=== PATIENT | female | born 1965 | race Caucasian/White ===

== ENCOUNTER → 2025-02-04 16:06 | Outpatient (REF) | payer OTHER, SELFPAY ==
--- OUTSIDE RECORDS SUMMARY | 2025-02-04 18:08 | XMS_ITS | Encounter Summary ---
Author Organization [facility] Address [address] [place] [address] Care Team Providers Care Local Telephone Operator Name Role Phone Unavailable Primary Care Provider Unavailabl e Encounter Details Date Type Department Care Team (Latest Contact Info) Description 02/26/2002 Outpatient Historical HIS [facility] Long Rodriguez MD [address] [facility] [address] [place] [address] LUMP OR MASS IN BREAST (Primary Dx) Social History Tobacco Use Types Packs/Day Years Used Date Smoking Tobacco: Never Assessed Comments Unknown Sex and Gender Information Value Date Recorded Sex Assigned at Not on file Legal Sex Female 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
--- OUTSIDE RECORDS SUMMARY | 2025-02-04 18:08 | XMS_ITS | Encounter Summary ---
Author Organization [facility] Address [address] [place] [address] Care Team Providers Care Stringed Instrument Assembler Name Role Phone Unavailable Primary Care Provider Unavailabl e Encounter Details Date Type Department Care Team (Late st Contact Info) Description 10/31/2024 Results [facility] MEASUREMENT AND SENSING TECHNICIAN [facility] [place] [address] [facility] [address] [place] [address] Long Casas MD [address] [facility] [address] [place] [address] XR DEXA BONE DENSITY AXIAL 1 OR MORE SITES Social History Tobacco Use Types Packs/Day Years Used Date Smoking Tobacco: Never Alcohol Use Standard Drinks/Week Comments Yes 0 (1 standard drink = 0.6 oz pur e alcohol) Occasionally Comments No Sex and Gender Information Value Date Recorded Sex Assigned at Not on file 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
--- OUTSIDE RECORDS SUMMARY | 2025-02-04 18:08 | XMS_ITS | Encounter Summary ---
Author Organization [facility] Address 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 [place], [place] [address] Admit Date: 01/12/2009 JUSTINA TAVERAS Sex: F Admit Prov: LONG NGUYEN Date: 1965 Primary Care Prov: LUIS FRANCIS CMRN: [id number] Room: DARNELL SSN: [id number] IMAGING SERVICES Ordering Prov: LONG NGUYEN Accession Number: [id number] Interpretation BILATERAL SCREENING DIGITAL MAMMOGRAMS WITH COMPUTER ASSISTED DIAGNOSIS 01/12/2009 Clinical History: Routine screening study. Comparison is made to 11/08/2007. The breast parenchyma has scattered fibroglandular densities. No new dominant masses, suspicious calcifications or areas of parenchymal asymmetry or distortion are identified. The images were reviewed using the CAD system. Impression: Stable screening mammogram Recommend routine followup Overall assessment: BIRADS category 1 - Negative. Assessment BIRADS: 1-Negative Recommendation: Normal interval follow-up Dictated by: ROSALBA MATOS Electronically signed by: ROSALBA MATOS 01/13/2009 12:42 Transcribed: 01/12/2009 17:26 SDJ Procedure Note Rosalba Matos - 01/13/2009 [facility] [address] [place], [place] [address] Admit Date: 01/12/2009 JUSTINA TAVERAS Sex: F Admit Prov: LONG NGUYEN Date:1965 Primary Care Prov: LUIS FRANCIS CMRN: [id number] Room: DARNELL SSN: [id number] IMAGING SERVICES Ordering Prov: LONG NGUEYN Interpretation BILATERAL SCREENING DIGITAL MAMMOGRAMS WITH COMPUTER ASSISTEDDIAGNOSIS 01/12/2009 Clinical History: Routine screening study. Comparison is made to 11/08/2007. The breast parenchyma hasscattered fibroglandular densities. No new dominant masses, suspiciouscalcifications or areas of parenchymal asymmetry or distortion are identified. Theimages were reviewed using the CAD system. Impression: Stable screening mammogram Recommend routine followup Overall assessment: BIRADS category 1 - Negative. Assessment BIRADS: 1-Negative Recommendation: Normal interval follow-up Dictated by: ROSALBA MATOS Electronically signed by: ROSALBA MATOS 01/13/2009 12:42 Transcribed: 01/12/2009 17:26 SDJ us Long Nguyen MD MAMMO ORDERABLES Final Result documented in this encounter Visit Diagnoses Diagnosis Other screening mammogram documented in this encounter
--- OUTSIDE RECORDS SUMMARY | 2025-02-04 18:08 | XMS_ITS | Referral Summary ---
Author Organization [facility] [address] [place] [address] Care Team Providers Care Quality Assurance Monitor Chassis Name Role Phone Hema Aden MD Primary Care Provider [phone] Encounters Date Type Department Care Team Description 11/29/2024 Telephone [facility] Primary Care at [address] [place] [phone] Hema Aden MD 11/26/2024 Orders Only [facility] Primary Care at [address] [place] [phone] Hema Aden MD 11/21/2024 Telephone [facility] Primary Care at [address] [place] [phone] Hema Aden MD Authorization/Certif ication 11/12/2024 Telephone [facility] Medical [facility] Primary Care at [address] [place] [phone] Hema Aden MD Prior Auth-Mounjaro 11/06/2024 Patient Self-Triage [facility] Health[facility]/ Physicians [address] [place] [id number] Mychart, Generic Provider 11/06/2024 Patient Self-Triage [facility] [address] [place] [phone] Mychart, Generic Provider from Last 3 Months Allergies Active Allergy Reactions Criticality Noted Date Comments Erythromycin Rash,Swelling Medium 04/28/2017 Latex Rash Medium 04/28/2017 Povidone-Iodine Rash Medium 06/21/2017 Rash, itching Sulfa (Sulfonamide Antibiotics) Urticaria Medium 08/05/2019 Venom-Honey Bee Shortness of breath High 06/21/2017 Trouble breathing Venom-Wasp Swelling High 06/21/2017 Per patient, blisters, trouble breathing Per patient, blisters, trouble breathing Wasp Venom Swelling High 06/21/2017 Per patient, blisters, trouble breathing Medications tirzepatide, weight loss, (ZEPBOUND) 2.5 mg/0.5 mL solution vial Inject 0.5 mL (2.5 mg total) under the skin every 7 days This medication record is used for ordering a prescription for Elin Direct Gomez 2 mL 5 Active Active Problems Problem Noted Date Diagnosed Date Prediabetes 10/07/2024 Mixed hyperlipidemia 10/07/2024 Assessment & Plan (10/07/2024 2:04 PM AUTO FORMER MACHINE OPERATOR): Lab Results Component Value Date CHOL 205 (H) 08/17/2023 CHOL 200 (H) 11/14/2022 Lab Results Component Value Date HDL 72 08/17/2023 HDL 60 11/14/2022 Lab Results Component Value Date LDLCALC 112 (H) 08/17/2023 LDLCALC 130 (H) 11/14/2022 Lab Results Component Value Date TRIG 122 08/17/2023 TRIG 56 11/14/2022 No results found for: POCCHDLR No results found for: POCNONHDL No results found for: POCCHLPL The 10-year ASCVD risk score (Aaron CHAVEZ, et al., 2019) is: 2.2% Values used to calculate the score: Age: 59 years Sex: Female Is Non- : No Diabetic: No Tobacco smoker: No Systolic Blood Pressure: 128 mmHg Is BP treated: No HDL Cholesterol: 72 mg/dL Total Cholesterol: 205 mg/dL At goal goal at this time Elevated LDL but improved Repeat labs now Annual physical exam 08/17/2023 Assessment & Plan (10/07/2024 2:03 PM AUTO FORMER MACHINE OPERATOR): Discussed lifestyle modifications, diet and exercise. Routine blood work ordered/reviewed today. Yearly vision and dental examinations. Assessment & Plan (08/17/2023 9:13 AM CDT): Discussed lifestyle modifications, diet and exercise. Routine blood work ordered/reviewed today. Yearly vision and dental examinations. Rheumatoid arthritis of [facility] with negative rheumatoid factor 08/17/2023 Assessment & Plan (08/17/2023 9:14 AM CDT): Following with rheumatology Stable at this time Class 2 obesity due to exces s calories without serious comorbidity with body mass index (BMI) of 37.0 to 37.9 in adult 11/14/2022 Assessment & Plan (10/07/2024 2:06 PM AUTO FORMER MACHINE OPERATOR): Wt Readings from Last 3 Encounters: 10/07/24 102.2 kg (225 lb 3.2 oz) 08/17/23 102.1 kg (225 lb) 11/14/22 103.4 kg (228 lb) BMI Readings from Last 3 Encounters: 10/07/24 37.48 kg/m 08/17/23 37.44 kg/m 11/14/22 37.94 kg/m Not at goal of bmi <30 Continue diet and exercise BMI Follow-up includes: nutrition counseling and exercise counseling. Side effects to medicatiuon D/c metformin now no signfiicant improvement with megtofrmin and had significant side effects to it and had to d/c Now states that ozempic has not helped at all Wants to try switching to zepboudn Assessment & Plan (08/28/2023 7:53 AM AUTO FORMER MACHINE OPERATOR): Wt Readings from Last 3 Encounters: 08/17/23 102.1 kg (225 lb) 11/14/22 103.4 kg (228 lb) 09/24/21 109.4 kg (241 lb 1.6 oz) BMI Readings from Last 3 Encounters: 08/17/23 37.44 kg/m 11/14/22 37.94 kg/m 09/24/21 40.12 kg/m Not at goal of bmi <30 Continue diet and exercise BMI Follow-up includes: nutrition counseling and exercise counseling. Side effects to medicatiuon D/c metformin now no signfiicant improvement with megtofrmin and had significant side effects to it and had to d/c Assessment & Plan (11/14/2022 9:08 AM AUTO FORMER MACHINE OPERATOR): Wt Readings from Last 3 Encounters: 11/14/22 103.4 kg (228 lb) 09/24/21 109.4 kg (241 lb 1.6 oz) 04/13/20 104.3 kg (230 lb) BMI Readings from Last 3 Encounters: 11/14/22 37.94 kg/m 09/24/21 40.12 kg/m 04/13/20 38.27 kg/m Not at goal of bmi <30 Continue diet and exercise BMI Follow-up includes: nutrition counseling and exercise counseling. Wants to try medication, will do a trial with ozempic Polyarthralgia 11/14/2022 Assessment & Plan (11/14/2022 9:09 AM AUTO FORMER MACHINE OPERATOR): Stable - following with rheumatology Resolved Problems Problem Noted Date Diagnosed Date Resolved Date Diabetes mellitus 10/07/2024 10/07/2024 Abdominal pain 04/09/2020 11/14/2022 Assessment & Plan (04/09/2020 2:29 PM CDT): Severe. Lower abdominal pain with associated tenderness. Suggestive of acute colitis versus diverticulitis. Plan: Check CBC, CMP and CT abdomen and pelvis. Colonoscopy is scheduled and to be performed if there is no acute inflammation and CT. The patient was informed about the risks, benefits and alternatives to colonoscopy. The risks including but not limited to perforation, bleeding, infection and anesthetic complications with discussed with the patient and the patient verbalized full understanding. Diarrhea 04/09/2020 11/14/2022 Assessment & Plan (04/09/2020 2:25 PM CDT): New onset. Moderately severe. Associated with chills, tenderness, abdominal pain. Differential diagnosis include acute colitis,diverticulitis, IBD. Plan Obtain CBC, CMP, CRP. Obtain CT abdomen and pelvis w/o contrast. Stool culture. Colonoscopy recommended. Bloating 04/09/2020 11/14/2022 Assessment & Plan (04/09/2020 2:43 PM CDT): May be a component of IBS. The patient also has diminished bowel sounds and the bloating symptoms may be due to ileus related to acute abdominal inflammation. She was counseled to avoid dairy products and shiga substitutes. CT scan of the abdomen and pelvis is requested. Immunizations Immunization Administration Dates Next Due Influenza, Unspecified 10/07/2024(Deferr ed: Patient Refused),11/14/2022(Deferred: Patient Refused) Tdap 06/16/2011 Social History Tobacco Use Types Packs/Day Years Used Date Smoking Tobacco: Never Smokeless Tobacco: Never Alcohol Use Standard Drinks/Week Comments Yes 0 (1 standard drink = 0.6 oz pur e alcohol) Occasionally PHQ-2 Answer Date Recorded PHQ-2 Total Score (If total score is 3 or more points, staff should administer the PHQ-9) 0 10/07/2024 Comments Unknown Sex and Gender Information Value Date Recorded Sex Assigned at Not on file Legal Sex Female 8:03 PM AUTO FORMER MACHINE OPERATOR Gender Identity Female 10/18/2022 3:18 PM AUTO FORMER MACHINE OPERATOR Sexual Orientation Straight 10/18/2022 3: 18 PM AUTO FORMER MACHINE OPERATOR Last Filed Vital Signs Vital Sign Reading Time Taken Comments Blood Pressure 134/82 10/07/2024 2:00 PM AUTO FORMER MACHINE OPERATOR Pulse 83 10/07/2024 2:00 PM AUTO FORMER MACHINE OPERATOR Temperature 37 C (98.6 F) 09/24/2021 2:43 PM AUTO FORMER MACHINE OPERATOR Respiratory Rate 16 10/07/2024 2:00 PM AUTO FORMER MACHINE OPERATOR Oxygen Saturation 100% 10/07/2024 2:00 PM AUTO FORMER MACHINE OPERATOR Inhaled Oxygen Concentration - - Weight 102.2 kg (225 lb 3.2 oz) 10/07/2024 2:00 PM AUTO FORMER MACHINE OPERATOR Height 165.1 cm (5' 5 ) 10/07/2024 2:00 PM AUTO FORMER MACHINE OPERATOR Body Mass Index 37.48 10/07/2024 2:00 PM AUTO FORMER MACHINE OPERATOR Plan of Treatment Not on file Procedures Procedure Name Priority Date/Time Associated Diagnosis Comments HEPATITIS C ANTIBODY Routine 10/08/2024 11:36 AM AUTO FORMER MACHINE OPERATOR Need for hepatitis B screening test COLONOSCOPY 04/13/2020 10:31 AM CDT from Last 3 Months or Most Recently Relevant to Health Maintenance Results * Hepatitis C antibody Blood (10/08/2024 11:36 AM AUTO FORMER MACHINE OPERATOR) Hep C Ab Non Reactive Non Reactive [facility] - 01 Comment: HCV antibody alone does not differentiate between previously resolved infection and active infection. Equivocal and Reactive HCV antibody results should be followed up with an HCV RNA test to support the diagnosis of active HCV infection. Blood 10/08/2024 11:3 6 AM AUTO FORMER MACHINE OPERATOR 10/08/2024 Narrative [facility] - 10/09/2024 4:06 AM AUTO FORMER MACHINE OPERATOR Performed at: 01 - [address] [id number] Head Of Biology: Franco Denny PhD, Phone: [phone] us Hema Aden MD LAB MICROBIOLOGY - GENERAL ORDER [place] Final Result [facility] - 01 * COLONOSCOPY (04/13/2020 10:31 AM CDT) Anatomical Region Laterality Modality Other Narrative Procedure Note Ester Talbot MD - 04/13/2020 10:31 AM CDT [facility] Patient Name: Justina Martinez Procedure Date: 04/13/2020 10:31 AM Date of : 1965 Admit Type: Outpatient Age: 54 Gender: Female Note Status: Finalized Attending MD: Ester Talbot M.D. Procedure Date: 04/13/2020 Procedure: Colonoscopy Indications: Lower abdominal pain, Follow-up of diverticulitis Providers: Ester Talbot M.D., Jamir James CRNA (Anesthesia Staff), Meryl Shepard RN Referring MD: Pcp Clinic Medicines: Monitored Anesthesia Care Complications: No immediate complications. Estimated Blood Loss: Estimated blood loss was minimal. Procedure: Pre-Anesthesia Assessment: - Prior to the procedure, a History and Physical was performed, and patient medications and allergieswere reviewed. The patient is competent. The risks and benefits of the procedure and the sedation optionsand risks were discussed with the patient. All questions were answered and informed consent was obtained. Patient identification and proposed procedure were verified by the physician, the nurse and the video coordinator in the procedure room. Mental Status Examination: alert and oriented. Airway Examination: normal oropharyngeal airway and neck mobility. Respiratory Examination: clear to auscultation. CV Examination: normal. Prophylactic Antibiotics: The patient does not require prophylactic antibiotics. Prior Anticoagulants: The patient has taken noprevious anticoagulant or antiplatelet agents. ASA Grade Assessment: II - A patient with mild systemicdisease. After reviewing the risks and benefits, the patientwas deemed in satisfactory condition to undergo the procedure. The anesthesia plan was to use monitored anesthesia care (MAC). Immediately prior to administration of medications, the patient was re-assessed for adequacy to receive sedatives. The heart rate, respiratory rate, oxygen saturations,blood pressure, adequacy of pulmonary ventilation, and response to care were monitored throughout the procedure. The physical status of the patient was re-assessed after the procedure. - The risks and benefits of the procedure and the sedation options and risks were discussed with the patient. All questions were answered and informed consent was obtained. After I obtained informed consent, the scope waspassed under direct vision. Throughout the procedure, the patient's blood pressure, pulse, and oxygensaturations were monitored continuously. The scope was passedunder direct vision. The Colonoscope was introducedthrough the anus and advanced to the the cecum, identifiedby appendiceal orifice and ileocecal valve. The colonoscopy was performed without difficulty. The patient tolerated the procedure well. The quality of the bowel preparation was adequate. The bowel preparation used was SUPREP. Bowel prep was administered using a split dose. Findings: Multiple small and large-mouthed diverticula were found in thesigmoid colon. Erythema was seen in association with the diverticularopening. Kat-diverticular erythema was seen. There was no evidence of diverticular bleeding. Biopsies were taken with a cold forceps for histology. Estimated blood loss was minimal. The exam was otherwise without abnormality on direct and retroflexion views. Impression: - Moderate diverticulosis in the sigmoid colon. Erythema was seen in association with thediverticular opening. Kat-diverticular erythema was seen. Therewas no evidence of diverticular bleeding. Biopsied. - The examination was otherwise normal on direct and retroflexion views. Recommendation: - Await pathology results. - Low fiber diet for 2 weeks. Then change to highfiber diet. - Continue present medications. (Ciprofloxacin and flagyl) for 2 weeks. - Repeat colonoscopy in 10 years for screeningpurposes. Procedure Code(s): --- Professional --- 77231, Colonoscopy, flexible; with biopsy, single or multiple Diagnosis Code(s): --- Professional --- R10.30, Lower abdominal pain, unspecified K57.32, Diverticulitis of large intestine without perforation or abscess without bleeding K57.30, Diverticulosis of large intestine without perforation or abscess without bleeding CPT copyright 2017 [employer]. All rights reserved. The codes documented in this report are preliminary and upon medical record consultant reviewmay be revised to meet current compliance requirements. Electronically signed by Ester Talbot M.D. Ester Talbot M.D. 04/13/2020 11:03:41 AM Number of Addenda: 0 Note Initiated On: 04/13/2020 10:31 AM Ester Talbot MD ENDOSCOPY PROCEDURES Fi nal Result from Last 3 Months or Most Recently Relevant to Health Maintenance Insurance [facility]O Address[place] [address] [facility]/PPO Address: [place] [address] Care Teams Quality Assurance Monitor Chassis Relationship Specialty Start Date End Date Hema Aden MD PCP - General Family Medicine 11/14/22
--- OUTSIDE RECORDS SUMMARY | 2025-02-04 18:08 | XMS_ITS | Clinical Summary ---
Author Organization [facility] Address [address] [place] [address] Phone Care Team Providers Care Label Pinker Name Role Phone Unavailable Primary Care Provider Unavailabl e Allergies Active Allergy Reactions Criticality Noted Date Comments Erythromycin Rash,Swelling Medium 04/28/2017 Latex Rash Medium 04/28/2017 Povidone-Iodine Rash Medium 06/21/2017 Rash, itching Rash, itching Soap Other (See Comments) 08/06/2019 Sulfa (Sulfonamide Antibiotics) Shortness of Breath/Wheezing,Hive s High 06/21/2017 Trouble breathing Venom-Wasp Swelling High 06/21/2017 Per patient, blisters, trouble breathing Per patient, blisters, trouble breathing Medications ibuprofen (MOTRIN) 800 mg tablet Take 800 mg by mouth. 9 Active naproxen sodium (ALEVE) 220 mg Capsule Take 2 Capsules by mouth daily. Active CALCIUM CARBONATE-VITAM IN D3 ORAL Take by mouth. Acti ve CYANOCOBALAMIN, VITAMIN B-12, ORAL Take by mouth. Activ e Calcium-Choleca lciferol, D3, (OSCAL) 250 mg-3.125 mcg (125 unit) per tablet Take by mouth daily. Active semaglutide 1 mg/dose (4 mg/3 mL) Pen Injector Inject 1 mg by subcutaneous injection every 7 days. 3 Active acetaminophen (TYLENOL) 500 mg tablet Take 500 mg by mouth. Active Active Problems No known active problems Encounters Date Type Department Care Team Description 01/01/2025 External Device Data STL ABSTRACTION Provider, Abstract 12/25/2024 External Device Data STL ABSTRACTION Provider, Abstract 12/24/2024 External Device Data STL ABSTRACTION Provider, Abstract 12/21/2024 External Device Data STL ABSTRACTION Provider, Abstract 12/21/2024 External Device Data STL ABSTRACTION Provider, Abstract 12/18/2024 External Device Data STL ABSTRACTION Provider, Abstract 12/04/2024 External Device Data STL ABSTRACTION Provider, Abstract 11/07/2024 External Device Data STL ABSTRACTION Provider, Abstract from Last 3 Months Family History Medical History Relation Name Comments Breast Cancer Paternal Cousin Ovarian Cancer Neg Hx Relation Name Status Comments Paternal Cousin Social History Tobacco Use Types Packs/Day Years Used Date Smoking Tobacco: Never Alcohol Use Standard Drinks/Week Comments Yes 0 (1 standard drink = 0.6 oz pur e alcohol) Occasionally Comments No Sex and Gender Information Value Date Recorded Sex Assigned at Not on file Legal Sex Female 3:23 AM VICE PRESIDENT NETWORK Gender Identity Not on file Sexual Orientation Not on file Occupation Industry Job Start Date Job End Date Not on file Not on file Not on file Not on file Not on file Not on file Not on file Not on file Last Filed Vital Signs Vital Sign Reading Time Taken Comments Blood Pressure 132/84 10/04/2024 1:07 PM VICE PRESIDENT NETWORK Pulse - - Temperature - - Respiratory Rate - - Oxygen Saturation - - Inhaled Oxygen Concentration - - Weight 101.6 kg (224 lb) 10/04/2024 1:07 PM VICE PRESIDENT NETWORK Height 165.1 cm (5' 5 ) 10/04/2024 1:07 PM VICE PRESIDENT NETWORK Body Mass Index 37.28 10/04/2024 1:07 PM VICE PRESIDENT NETWORK Plan of Treatment Health Maintenance Due Date Last Done Comments Pre-Diabetes and Diabetes Screening 1965 HEPATITIS B VACCINES (1 of 3 - 19+ 3-dose series) 1985 FIT-DNA Q 3 years 2011 FIT/FOBT Q 1 year 2011 Flex Sig/CT Colonography Q 5 years 2011 ZOSTER VACCINE (1 of 2) 2016 DTAP/TDAP/TD VACCINES (2 - T d or Tdap) 06/16/2021 06/16/2011 INFLUENZA VACCINE (#1) 2024 BREAST CANCER SCREENING 10/04/2025 10/04/20 24, 10/02/2023, 09/29/2022, Additional history exists PAP SMEAR 10/04/2027 10/04/2024, 09/15, 09/29/2022, Additional history exists CERVICAL CANCER SCREENING 10/04/2029 HPV/Cotest (21-29) 10/04/2029 10/04/2024, 1 12/03/2022, 09/29/2022, Additional history exists HPV/Cotest (30-65) 10/04/2029 10/04/2024, 1 12/03/2022, 09/29/2022, Additional history exists COLORECTAL SCREENING 04/13/2030 04/13/2020, 04/13/20 Colorectal Cancer Screening 04/13/2030 Procedures Procedure Name Priority Date/Time Associated Diagnosis Comments MAMMO 3D MARIANO SCREEN BILAT W OR WO CAD Routine 10/04/2024 1:59 PM VICE PRESIDENT NETWORK Visit for screening mammogram CERV/VAG CYTO AGE BASED SCREEN PAP Routine 10/04/2024 1:54 PM VICE PRESIDENT NETWORK Screening for cervical cancer from Last 3 Months or Most Recently Relevant to Health Maintenance Results * MAMMO 3D MARIANO SCREEN BILAT W OR WO CAD (10/04/2024 1:59 PM VICE PRESIDENT NETWORK) Anatomical Region Laterality Modality Breast Bilateral Mammography 10/04/2024 1:59 PM VICE PRESIDENT NETWORK Impressions 10/04/2024 2:35 PM VICE PRESIDENT NETWORK IMPRESSION: No mammographic evidence of malignancy is identified in either breast. Routine screening mammography is recommended in one year. OVERALL FINAL ASSESSMENT: BI-RADS CATEGORY 1 - Negative DICTATION LOCATION: [facility] 10/04/2024 2:35 PM VICE PRESIDENT NETWORK EXAMINATION: MAMMO 3D MARIANO SCREEN BILAT W OR WO CAD DATE: 10/04/2024 1:59 PM HISTORY: Routine screening mammography. COMPARISON: 10/02/2023, 09/29/2022, 09/16/2021. TECHNIQUE: Bilateral screening mammogram was performed. Low-dose full-field digital breast tomosynthesis examination was performed with 2D and 3D acquisitions. Examination is read in conjunction with computer aided detection. BREAST COMPOSITION: The breasts are almost entirely fatty. FINDINGS: No new suspicious findings are identified in either breast on mammogram. Procedure Note Severino Arevalo MD - 10/04/2024 EXAMINATION: MAMMO 3D MARIANO SCREEN BILAT W OR WO CAD DATE: 10/04/2024 1:59 PM HISTORY: Routine screening mammography. COMPARISON: 10/02/2023, 09/29/2022, 09/16/2021. TECHNIQUE: Bilateral screening mammogram was performed. Low-dose full-field digital breast tomosynthesis examination was performed with 2D and 3D acquisitions. Examination is read in conjunction with computer aided detection. BREAST COMPOSITION: The breasts are almost entirely fatty. FINDINGS: No new suspicious findings are identified in either breast on mammogram. IMPRESSION: No mammographic evidence of malignancy is identified in either breast. Routine screening mammography is recommended in one year. OVERALL FINAL ASSESSMENT: BI-RADS CATEGORY 1 - Negative DICTATION LOCATION: [facility] Long Casas MD MAMMO ORDERABLES Final Result * CERV/VAG CYTO AGE BASED SCREEN PAP (10/04/2024 1:54 PM VICE PRESIDENT NETWORK) COMMENT (PAP): [facility] Comment: This order for age-based cervical cancer and STI screening follows ACOG guidelines(PB 168, 140, DEZ065). See individual assays for performing site location. CLINICAL INFORMATION [facility] Comment:None given LAST MENSTRUAL PERIOD [facility] Comment:NONE GIVEN PREV PAP: [facility] Comment:NONE GIVEN PREV BX: [facility] Comment:NONE GIVEN SOURCE [facility] Comment:Endocervix ADEQUACY: [facility] Comment: Satisfactory for evaluation. Endocervical/transformation zone component present. PAP INTERP [facility] Comment: Cytology Results: Negative for intraepithelial lesion or malignancy. COMMENT (PAP TEST) [facility] Comment: This Pap test has been evaluated with computer assisted technology. BACK MAKER: Sobeida est Leilani- Juliana Comment: MEF, CT(ASCP) CT screening location: [place] [address] [place] [address] REVIEW BACK MAKER: [facility] Comment: MVB, CT(ASCP) CT Screening Location: [place] [address] [place] [address] EXPLANATORY NOTE [facility] [place] Comment: EXPLANATORY NOTE: The Pap is a screening test for cervical cancer. It is not a diagnostic test and is subject to false negative and false positive results. It is most reliable when a satisfactory sample, regularly obtained, is submitted with relevant clinical findings and history, and when the Pap result is evaluated along with historic and current clinical information. HPV E6/E7 Not Detected Not Detected [facility] [place] Comment: Methodology: Oxyhydrogen Welder-Mediated Amplification This assay detects E6/E7 viral messenger RNA (mRNA) from 14 high-risk HPV types (16,18,31,33,35,39,45,51,52,56,58,59,66,68). Cervical sources are required for HPV testing. If a vaginal source from a patient who has had a total hysterectomy with removal of cervix was submitted, please contact the testing laboratory for alternative testing options. For additional information, please refer to http://education.[employer]/faq/XRX581z7 (This link if provided for information/ educational purposes only.) Test Performed at: [email or web address] [address] [place] [address] Deepa Singh MD Genital SWAB OF ENDOCERVIX / Unknown 10/04/2024 1:54 PM VICE PRESIDENT NETWORK 10/05/2024 12:20 AM VICE PRESIDENT NETWORK Long Casas MD PATHOLOGY/CYTOLOGY ORDERABLES nal Result [facility] [phone] [facility] [address] [place] [address] from Last 3 Months or Most Recently Relevant to Health Maintenance Insurance [facility] [id number]
--- OUTSIDE RECORDS SUMMARY | 2025-02-04 18:08 | XMS_ITS | Encounter Summary ---
Author Organization [facility] Address [address] [place] [address] Care Team Providers Care Filament Cutter Name Role Phone Unavailable Primary Care Provider Unavailabl e Encounter Details Date Type Department Care Team (Latest Contact Info) Description 11/08/2007 Outpatient Historical [facility] Long Rodriguez MD [address] [facility] [address] [place] [address] Other Screening Mammogram Social History Tobacco Use Types Packs/Day Years Used Date Smoking Tobacco: Never Assessed Comments Unknown Sex and Gender Information Value Date Recorded Sex Assigned at Not on file Legal Sex Female 3:23 AM BRANCH OPERATION EVALUATION MANAGER Gender Identity Not on file Sexual Orientation Not on file documented as of this encounter Plan of Treatment Not on file documented as of this encounter Visit Diagnoses Diagnosis Other screening mammogram documented in this encounter
--- OUTSIDE RECORDS SUMMARY | 2025-02-04 18:08 | XMS_ITS | Encounter Summary ---
Author Organization [facility] Address [address] [facility] [place] [address] Care Team Providers Care Seam Press Operator Name Role Phone Neptali Gonzalez MD Primary Care Provider [phone] Long Casas MD Unavailable Robert Cameron MD Unavailable Unknown, Provider Primary Care Provider Unavaila ble Encounter Details Date Type Department Care Team (Late st Contact Info) Description 09/17/2012 [facility] Social History Tobacco Use Types Packs/Day Years Used Date Smoking Tobacco: Never Alcohol Use Standard Drinks/Week Comments No 0 (1 standard drink = 0.6 oz pur e alcohol) Comments No Sex and Gender Information Value Date Recorded Sex Assigned at Female 10/25/2021 1:12 PM SOFTWOOD FALLER Legal Sex Female 5:06 AM SOFTWOOD FALLER Gender Identity Female 10/25/2021 1:12 PM SOFTWOOD FALLER Sexual Orientation Straight 10/25/2021 1: 12 PM SOFTWOOD FALLER documented as of this encounter Plan of Treatment Not on file documented as of this encounter Visit Diagnoses Not on filedocumented in this encounter Care Teams Seam Press Operator Relationship Specialty Start Date End Date Neptali Gonzalez MD PCP - General 11/09/08 07/16/19 Unknown, Provider [address] [place] [phone] PCP - General 10/25/21 Long Casas MD [address] [place] [address] Security Patrol Driver Obstetrics and Gynecology 01/15/14 [place] [address] [place] [address] Extracting Machine Operator Rheumatology 07/17/19 documented as of this encounter
--- OUTSIDE RECORDS SUMMARY | 2025-02-04 18:08 | XMS_ITS | Encounter Summary ---
Author Organization [facility] Health Address [address] [facility] [place] [address] Care Team Providers Care Senior Electronics Technician Name Role Phone Neptali Gonzalez MD Primary Care Provider [phone] Long Casas MD Unavailable Robert Cameron MD Unavailable Unknown, Provider Primary Care Provider Unavaila ble Encounter Details Date Type Department Care Team (Late st Contact Info) Description 02/22/2011 [facility] [address] [place] [address] Social History Tobacco Use Types Packs/Day Years Used Date Smoking Tobacco: Never Alcohol Use Standard Drinks/Week Comments No 0 (1 standard drink = 0.6 oz pur e alcohol) Comments No Sex and Gender Information Value Date Recorded Sex Assigned at Female 10/25/2021 1:12 PM PRECISION OPTICAL GOODS WORKER Legal Sex Female 5:06 AM PRECISION OPTICAL GOODS WORKER Gender Identity Female 10/25/2021 1:12 PM PRECISION OPTICAL GOODS WORKER Sexual Orientation Straight 10/25/2021 1: 12 PM PRECISION OPTICAL GOODS WORKER documented as of this encounter Plan of Treatment Not on file documented as of this encounter Visit Diagnoses Not on filedocumented in this encounter Care Teams Senior Electronics Technician Relationship Specialty Start Date End Date Neptali Gonzalez MD PCP - General 11/09/08 07/16/19 Unknown, Provider [address] [place] [address] PCP - General 10/25/21 Long Casas MD [address] [facility] [address] [place] [address] Metal Fitters And Machinists Obstetrics and Gynecology 01/15/14 [place] [address] [place] [phone] Mechanical Engineering Manager Rheumatology 07/17/19 documented as of this encounter
--- OUTSIDE RECORDS SUMMARY | 2025-02-04 18:08 | XMS_ITS | Clinical Summary ---
Author Organization [facility] [address] [place] [address] Care Team Providers Care Mechanic Helper Name Role Phone Hema Aden MD Primary Care Provider [phone] Allergies Active Allergy Reactions Criticality Noted Date [...] is used for ordering a prescription for Mindshapes Direct Gomez 2 mL 5 Active Active Problems Problem Noted Date Diagnosed Date Prediabetes 10/07/2024 Mixed hyperlipidemia 10/07/2024 Assessment & Plan (10/07/2024 2:04 PM OFFICE MACHINE SERVICE SUPERVISOR): Lab Results Component Value Date CHOL 205 [...] 08/17/2023 Assessment & Plan (10/07/2024 2:03 PM OFFICE MACHINE SERVICE SUPERVISOR): Discussed lifestyle modifications, diet and exercise. Routine blood work ordered/reviewed today. Yearly vision and dental examinations. Assessment & Plan (08/17/2023 9:13 AM CDT): Discussed lifestyle modifications, diet and exercise. Routine blood work ordered/reviewed today. Yearly vision and dental examinations. Rheumatoid arthritis of [facility] sites with negative rheumatoid factor 08/17/2023 Assessment & Plan (08/17/2023 9:14 AM CDT): Following with rheumatology Stable at this time Class 2 obesity due to exces s calories without serious comorbidity with body mass index (BMI) of 37.0 to 37.9 in adult 11/14/2022 Assessment & Plan (10/07/2024 2:06 PM OFFICE MACHINE SERVICE SUPERVISOR): Wt Readings from Last 3 Encounters: 10/07/24 [...] zepboudn Assessment & Plan (08/28/2023 7:53 AM OFFICE MACHINE SERVICE SUPERVISOR): Wt Readings from Last 3 Encounters: 08/17/23 [...] d/c Assessment & Plan (11/14/2022 9:08 AM OFFICE MACHINE SERVICE SUPERVISOR): Wt Readings from Last 3 Encounters: 11/14/22 [...] 11/14/2022 Assessment & Plan (11/14/2022 9:09 AM OFFICE MACHINE SERVICE SUPERVISOR): Stable - following with rheumatology Resolved Problems [...] of the abdomen and pelvis is requested. Encounters Date Type Department Care Team Description 11/29/2024 Telephone [facility] Primary Care at [address] [phone] Hema Aden MD 11/26/2024 Orders Only [facility] Primary Care at [address] [phone] Hema Aden MD 11/21/2024 Telephone [facility] Primary Care at [address] [phone] Hema Aden MD Authorization/Certif ication 11/12/2024 Telephone [facility] Primary Care at [address] [phone] Hema Aden MD Prior Auth-Mounjaro 11/06/2024 Patient Self-Triage [facility] [address] [place] [id number] Mychart, Generic Provider 11/06/2024 Patient Self-Triage [facility] [address] [place] [address] Mychart, Generic Provider from Last 3 Months Immunizations Immunization Administration Dates Next Due Influenza, Unspecified 10/07/2024(Deferr ed: Patient Refused),11/14/2022(Deferred: Patient Refused) Tdap 06/16/2011 Surgical History Surgery Date Site/Laterality Comments REDUCTION MAMMAPLASTY 10/16/2003 Bilateral ABDOMINAL SURGERY 10/16/2009 ESOPHAGOGASTRODUODENOSCOPY [facility] COLONOSCOPY 1994 Medical History Medical History Date Comments Rheumatoid aortitis Allergies Asthma Degeneration of L4-L5 intervertebral disc Family History Medical History Relation Name Comments GI problems Father Lung cancer Father mesothelioma Heart disease Mother Lung cancer Other aunt, great aun t Relation Name Status Comments Father Mother Alive Other Social History Tobacco Use Types Packs/Day Years [...] on file Legal Sex Female 8:03 PM OFFICE MACHINE SERVICE SUPERVISOR Gender Identity Female 10/18/2022 3:18 PM OFFICE MACHINE SERVICE SUPERVISOR Sexual Orientation Straight 10/18/2022 3: 18 PM OFFICE MACHINE SERVICE SUPERVISOR Obstetrics History Last Filed Vital Signs Vital Sign Reading Time Taken Comments Blood Pressure 134/82 10/07/2024 2:00 PM OFFICE MACHINE SERVICE SUPERVISOR Pulse 83 10/07/2024 2:00 PM OFFICE MACHINE SERVICE SUPERVISOR Temperature 37 C (98.6 F) 09/24/2021 2:43 PM OFFICE MACHINE SERVICE SUPERVISOR Respiratory Rate 16 10/07/2024 2:00 PM OFFICE MACHINE SERVICE SUPERVISOR Oxygen Saturation 100% 10/07/2024 2:00 PM OFFICE MACHINE SERVICE SUPERVISOR Inhaled Oxygen Concentration - - Weight 102.2 kg (225 lb 3.2 oz) 10/07/2024 2:00 PM OFFICE MACHINE SERVICE SUPERVISOR Height 165.1 cm (5' 5 ) 10/07/2024 2:00 PM OFFICE MACHINE SERVICE SUPERVISOR Body Mass Index 37.48 10/07/2024 2:00 PM OFFICE MACHINE SERVICE SUPERVISOR Plan of Treatment Health Maintenance Due Date Last Done Comments Cervical Cancer Screening 1965 Zoster Vaccine (1 of 2) 2016 DTaP/Tdap/Td Vaccine (2 - Td or Tdap) 06/16/2021 06/16/2011 Covid-19 Vaccine (4 - season) 2024 09/20/2021, 02/07/2021, 01/18/2021 Influenza Vaccine (#1) 2024 Breast Cancer Screening-Mammogram 10/04/2025 10/04/2024, 10/04/2024, 10/02/2023, Additional history exists Depression Screening 10/07/2025 10/07/2024, 08/17/2023, 11/14/2022, Additional history exists Regular Well Visit/Exam 18-64 10/07/2025 10/07/2024, 08/17/2023 Colon Cancer Screening-Colonoscopy 04/13/2030 04/13/2020 Colon Cancer Screening-CT Colonography Discontinued 04/13/2020 Colon Cancer Screening-DNA Stool Discontinued 04/13/2020 Colon Cancer Screening-FIT Discontinued 04/13/2020 Colon Cancer Screening-Sigmoidoscopy Discontinued 04/13/2020 Hepatitis B Screening Completed 10/08/2024 Hepatitis C Screening Completed 10/08/2024 Pneumococcal vaccine <65 Aged Out No longer eligible based on patient's age to complete this topic Procedures Procedure Name Priority Date/Time Associated Diagnosis Comments HEPATITIS C ANTIBODY Routine 10/08/2024 11:36 AM OFFICE MACHINE SERVICE SUPERVISOR Need for hepatitis B screening test COLONOSCOPY 04/13/2020 10:31 AM CDT from Last 3 Months or Most Recently Relevant to Health Maintenance Results * Hepatitis C antibody Blood (10/08/2024 11:36 AM OFFICE MACHINE SERVICE SUPERVISOR) Hep C Ab Non Reactive Non Reactive [facility] - 01 Comment: HCV antibody alone does not differentiate between previously resolved infection and active infection. Equivocal and Reactive HCV antibody results should be followed up with an HCV RNA test to support the diagnosis of active HCV infection. Blood 10/08/2024 11:3 6 AM OFFICE MACHINE SERVICE SUPERVISOR 10/08/2024 Narrative [facility] - 10/09/2024 4:06 AM OFFICE MACHINE SERVICE SUPERVISOR Performed at: - [facility] [address] [id number] Refinery Operator Alkylation: Franco Denny PhD, Phone: [phone] us Hema Aden MD LAB MICROBIOLOGY - GENERAL ORDER [place] Final Result [facility] - [facility] * COLONOSCOPY (04/13/2020 10:31 AM CDT) Anatomical Region Laterality Modality Other Narrative Procedure Note Ester Talbot MD - 04/13/2020 10:31 AM CDT [facility] Patient Name: Justina Martinez Procedure [...] by the physician, the nurse and the assembler tester in the procedure room. Mental Status Examination: [...] for screeningpurposes. Procedure Code(s): --- Professional --- 57194, Colonoscopy, flexible; with biopsy, single or multiple Diagnosis Code(s): --- Professional --- R10.30, Lower abdominal pain, unspecified K57.32, Diverticulitis of large intestine without perforation or abscess without bleeding K57.30, Diverticulosis of large intestine without perforation or abscess without bleeding CPT copyright 2017 [employer]. All rights reserved. The codes documented in this report are preliminary and upon services manager reviewmay be revised to meet current compliance requirements. Electronically signed by Ester Talbot M.D. Ester Talbot M.D. 04/13/2020 11:03:41 AM Number of Addenda: 0 Note Initiated On: 04/13/2020 10:31 AM us Ester Talbot MD ENDOSCOPY PROCEDURES Fi nal Result from Last 3 Months or Most Recently Relevant to Health Maintenance Insurance [facility] CHO[facility] PLUS [facility] CHOICE PLUS Care Teams Mechanic Helper Relationship Specialty Start Date End Date Hema Aden MD PCP - General Family Medicine 11/14/22
--- OUTSIDE RECORDS SUMMARY | 2025-02-04 18:08 | XMS_ITS | Encounter Summary ---
Author Organization [facility] Health Address [address] [place] [address] Care Team Providers Care Excel Expert Name Role Phone Neptali Gonzalez MD Primary Care Provider [phone] Long Casas MD Unavailable Robert Cameron MD Unavailable Unknown, Provider Primary Care Provider Unavaila ble Encounter Details Date Type Department Care Team (Late st Contact Info) Description 08/06/2014 [facility] Neptali Gonzalez MD [address] [place] [id number] Social History Tobacco Use Types Packs/Day Years Used Date Smoking Tobacco: Never Alcohol Use Standard Drinks/Week Comments No 0 (1 standard drink = 0.6 oz pur e alcohol) Comments No Sex and Gender Information Value Date Recorded Sex Assigned at Female 10/25/2021 1:12 PM JUTE BAG CLIPPER Legal Sex Female 5:06 AM JUTE BAG CLIPPER Gender Identity Female 10/25/2021 1:12 PM JUTE BAG CLIPPER Sexual Orientation Straight 10/25/2021 1: 12 PM JUTE BAG CLIPPER documented as of this encounter Plan of Treatment Not on file documented as of this encounter Visit Diagnoses Not on filedocumented in this encounter Care Teams Excel Expert Relationship Specialty Start Date End Date Neptali Gonzalez MD PCP - General 11/09/08 07/16/19 Unknown, Provider [address] [place] [phone] PCP - General 10/25/21 Long Casas MD [address] [facility] [address] [place] [address] Career Information Specialist Obstetrics and Gynecology 01/15/14 [place] [address] [place] [phone] Physician General Practice Rheumatology 07/17/19 documented as of this encounter
--- OUTSIDE RECORDS SUMMARY | 2025-02-04 18:08 | XMS_ITS | CONTINUITY OF CARE DOCUMENT ---
Author Name edwige mckennacora Address Unknown Organization [facility] Address [id number] [place] [address] [address] [place] [address] Phone [phone] Care Team Providers Care Furnace Repairer Helper Name Role Phone Lucian STEPHENSON, Unavailable [phone] Lucian STEPHENSON, Unavailable [phone] PROBLEMS Condition Status Date Provider Notes Venous insufficiency active Elizabeth valderrama AUTOMAT WATCHER Edema - localized active Katherine Ram AUTOMAT WATCHER ENCOUNTERS Date Type Provider Location Encounter Diag nosis - In-person encounter Office Visit Kahlil [facility] Edema - localized - In-person encounter Office Visit Kahlil Epstein [facility] - In-person encounter Office Visit Kahlil Epstein [facility] Venous insufficiency VITAL SIGNS Date Observation Value Provider Body Mass Index (Ratio) 38.60 kg/m2 nicole Epstein MD blood pressure, diastolic 106 mm[Hg] Helio Pena blood pressure, systolic 169 mm[Hg] Rex Pena pulse rate 80 /min Mary Pena oxygen saturation, oximetry 99 % Mary Pena respiratory rate E&M 12 /min Mary ernandez weight E&M 232 [lb_av] Mary Pena blood pressure, cuff size regular Helio Pena height E&M 65 [in_i] Mary Jean Body Mass Index (Ratio) 36.77 kg/m2 Sund yasminpriya Epstein MD blood pressure, diastolic 118 mm[Hg] Ky ok Jean blood pressure, systolic 162 mm[Hg] Kyangelita ramirez Jean weight E&M 221 [lb_av] Mary Jean oxygen saturation, oximetry 96 % Mary Jean respiratory rate E&M 12 /min Mary ernandez pulse rate 70 /min Mary Jean blood pressure, cuff size regular [place] Jean height E&M 65 [in_i] [facility] Body Mass Index (Ratio) 37.11 kg/m2 Sund yasminpriya Epstein MD blood pressure, diastolic 90 mm[Hg] [facility], [facility] 130 mm[Hg] Vip in [facility] respiratory rate E&M 16 /min Federico M [facility] pulse rate 70 /min [facility] blood pressure, cuff size regular [facility], oximetry 96 % [facility] weight E&M 223 [lb_av] [facility] height E&M 65 [in_i] [facility] ALLERGIES Allergy Name Onset Date Reaction Criticality Status LATEX Rash High Criticality active HISTORY OF MEDICATION USE No Known Medication SOCIAL HISTORY Date Observation Value Provider number of grandchildren Kahlil Le AUTOMAT WATCHER smoking status Never smoker Anuradha santana AUTOMAT WATCHER smoking status Never smoker Elizabeth Schneider AUTOMAT WATCHER INSURANCE PROVIDERS Payer name Policy type / Coverage type [place] [employer] party ID [facility] [id number] Other [id number] TREATMENT PLAN Date Name Performer Cardiology: S he states that continue to have pain and swelling in BLE. No more 'squirting.' She is having swelling in her legs improves a little with compression stockings . She does walk daily for a mile. 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 She is s/p varithena in 10/03/2024. S he is having swelling in her legs improves a little with compression stockings but doesn't wear them regularly h as thrombosed veins in legs which are unsightly for her and can have phlebectomy or leave it be CONCLUSIONS: 1 . No evidence of a deep vein thrombosis of the lower extremities bilaterally. 2 . Venous insufficiency of the sapheno femoral junction bilaterally. 3 . Significant venous insufficiency of the great saphenous vein bilaterally. she has varicose vein feeding the blleding varicosity V arithena x2 in LLE last completed in 10/03/2024. c an address gsv later on Lucian STEPHENSON Cardiology:yadira DEY jannie kyle ugarte have MTS Katherine Ram NP Cardiology: S he states that continue to have pain and swelling in BLE. No more 'squirting.' She is having swelling in her legs improves a little with compression stockings . She does walk daily for a mile. 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 She is s/p varithena in 10/03/2024. S he is having swelling in her legs improves a little with compression stockings but doesn't wear them regularly v enous duplex: CONCLUSIONS: 1 . No evidence of a deep vein thrombosis of the lower extremities bilaterally. 2 . Venous insufficiency of the sapheno femoral junction bilaterally. 3 . Significant venous insufficiency of the great saphenous vein bilaterally. she has varicose vein feeding the blleding varicosity V arithena x2 in LLE last completed in 10/03/2024. c an address gsv later on Katherine Ram NP Cardiology:She state s that continue to have pain, bleedign that her vein had opened up and was 'squirting'. S he is having swelling in her legs improves a little with compression stockings but doesn't wear them regularly v enous duplex: C ONCLUSIONS: 1 . No evidence of a deep vein thrombosis of the lower extremities bilaterally. 2 . Venous insufficiency of the sapheno femoral junction bilaterally. 3 . Significant venous insufficiency of the great saphenous vein bilaterally. she has varicose vein feeding the blleding varicosity [facility] c an address gsv later on Anuradha Le AUTOMAT WATCHER Cardiology:She does have pain and swelling in her bilateral LEs, has not had any compression stocking, but she does walk daily We will obtain standing venous dopplers and have recommended compression and elevation. Elizabeth Ortiz AUTOMAT WATCHER Date Name Venous Doppler Unila diana SANTIAGO Venous Doppler Bilat eraangelita LE - Reflux HISTORY OF PROCEDURES Procedure Date Procedure Name Provider Procedure Notes S tatus Complex e/m visit add on Lucian STEPHENSON completed Complex e/m visit add on Lucian STEPHENSON completed
--- OUTSIDE RECORDS SUMMARY | 2025-02-04 18:08 | XMS_ITS | Clinical Summary ---
Author Organization [facility] Address [address] [place] [address] Care Team Providers Care International Trade Manager Name Role Phone Long Casas MD Unavailable Robert Cameron MD Unavailable Unknown, Provider Primary Care Provider Unavaila ble Source Comments [facility],non-owned Affiliates and Associated Physician Practices is amultiple site organization consisting of ambulatory clinics and hospital sitesin [place], [place], [place] and [place]. This disclosure is being madepursuant to the Care Everywhere program and may not contain all information available regarding this patient. Last updated 18.[facility] Allergies Active Allergy Reactions Criticality Noted Date Comments Bee Shortness of Breath High 06/21/2017 Trouble breathing Erythromycin Rash,Swelling Medium 04/28/2017 Latex Rash Medium 04/28/2017 Povidone Iodine Rash Medium 06/21/2017 Rash, itching Sulfa Drugs Urticaria Medium 08/05/2019 Wasp Venom Swelling High 06/21/2017 Per patient, blisters, trouble breathing Medications * Be aware that medications may not be up to date on this document. Alwaysverify current medications with the patient. Naproxen Sodium (ALEVE) 220 MG CAPSIndications :Seronegative arthritis Take 2 Caps by mouth once daily. Active ibuprofen (MOTRIN) 800 MG tablet Take 800 mg by mouth 2 times daily as needed with food for Pain 9 Active tiZANidine (ZANAFLEX) 4 MG tablet Take 1 tablet by mouth at bedtime 14 tablet 9 Active Additional Information Patient not taking.Reported on 10/25/2021 Active Problems Problem Noted Date Diagnosed Date Carpal tunnel syndrome on both sides 04/30/2017 Seronegative arthritis 08/01/2014 Overview (10/07/2014): Paper chart NA; has seen Dr. Gonzalez as a PCP since early . Has been treated symptomatically; occasional bursts of steroids. Seronegative arthritis 08/01/2014 Overview (07/17/2019): Overview: Overview: Paper chart NA; has seen Dr. Gonzalez as a PCP since early . Has been treated symptomatically; occasional bursts of steroids. S/P abdominoplasty 07/16/2010 Overview (07/17/2019): Dr. Lomax Obesity 11/09/2008 Obesity 11/09/2008 Immunizations Immunization Administration Dates Next Due TDAP (7yrs+) 06/16/2011 Family History Medical History Relation Name Comments Cancer - Lung Father Hyperlipidemia Father Diabetes - Type 2 Maternal Grandmother COPD - Chronic Obstructive Pulmonary Disease Other aunt Relation Name Status Comments Brother Alive Father Maternal Grandfather Maternal Grandmother Mother Alive Other aunt Paternal Grandfather Paternal Grandmother Social History Tobacco Use Types Packs/Day Years Used Date Smoking Tobacco: Never Smokeless Tobacco: Never Tobacco Cessation:Counseling Given: No Alcohol Use Standard Drinks/Week Comments Yes 6 (1 standard drink = 0.6 oz pur e alcohol) AUDIT-C Answer Date Recorded Frequency of Alcohol Consumption 2-3 times a wee k 07/17/2019 Average Number of Drinks Not on file 019 Frequency of Binge Drinking Not on file 11/2018 Overall Financial Resource Strain (CARDIA) Answe r Date Recorded Difficulty of Paying Living Expenses Not hard at all 07/17/2019 Hunger Vital Sign Answer Date Recorded Worried About Running Out of Food in the Last Ye ar Never true 07/17/2019 Ran Out of Food in the Last Year Never true 07/17/2019 Education Answer Date Recorded What is the highest level of school you have completed or the highest degree you have received? 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 Not on file Not on file Last Filed Vital Signs Vital Sign Reading Time Taken Comments Blood Pressure 130/80 10/25/2021 1:34 PM CREATIVE WRITING TEACHER Pulse 101 10/25/2021 1:34 PM CREATIVE WRITING TEACHER Temperature 36.2 C (97.2 F) 10/25/2021 1:34 PM CREATIVE WRITING TEACHER Respiratory Rate 18 07/17/2019 2:56 PM CDT Oxygen Saturation 94% 08/05/2019 1:30 PM CDT Inhaled Oxygen Concentration - - Weight 106.6 kg (235 lb) 10/25/2021 1:34 PM CREATIVE WRITING TEACHER Height 165.1 cm (5' 5 ) 10/25/2021 1:34 PM CREATIVE WRITING TEACHER Body Mass Index 39.11 10/25/2021 1:34 PM CREATIVE WRITING TEACHER Plan of Treatment Health Maintenance Due Date Last Done Comments COLOGUARD (AGES 45-75) - COLON CA SCREENING 1966 COLON MONITORING 1966 COLONOSCOPY - COLON CA SCREENING 1966 CT COLONOGRAPHY - COLON CA SCREENING 1966 Colorectal Cancer Screening 1966 FIT - COLON CA SCREENING 1966 FLEX SIG - COLON CA SCREENING 1966 HIV SCREENING 1981 HEPATITIS C SCREENING 08/28/1984 HEPATITIS B VACCINE (1 of 3 - 19+ 3-dose series) 1985 PNEUMOCOCCAL VACCINE 50+ (1 of 1 - PCV) 2016 ZOSTER VACCINE (1 of 2) 2016 LIPID TESTING 08/12/2018 08/12/2013, 01/12/2011 MAMMOGRAM 07/11/2020 07/11/2018 (Done Outside Per Report), 07/11/2018, 06/16/2018 DTAP/TDAP/TD VACCINES (2 - Td or Tdap) 06/16/2021 06/16/2011 COVID-19 VACCINE (1 - season) 2024 PAP SMEAR 09/27/2024 09/27/2021 DEPRESSION SCREENING 10/16/2024 SCREENING FOR DIABETES 10/25/2024 2, 08/05/2019, 08/01/2014, Additional history exists INFLUENZA VACCINE (Season Ended) 2025 HIB VACCINE Aged Out No longer eligi ble based on patient's age to complete this topic HPV VACCINE Aged Out No longer eligi ble based on patient's age to complete this topic MENINGOCOCCAL (Group B) VACCINE SHARED DECISION-MAKING Aged Out No longer eligible based on patient's age to complete this topic MENINGOCOCCAL GROUPS A/C/Y/W VACCINE Aged Out No longer eligible based on patient's age to complete this topic Procedures Procedure Name Priority Date/Time Associated Diagnosis Comments COMPREHENSIVE METABOLIC PANEL Routine 10/25/2021 3:39 PM CREATIVE WRITING TEACHER Polyarthralgia Joint stiffness Myalgia History of inflammatory arthritis MAMMOGRAPHY ORDER Routine 07/11/2018 LIPID PROFILE Routine 08/12/2013 3:55 PM CDT Obesity from Last 3 Months or Most Recently Relevant to Health Maintenance Results * (ABNORMAL) COMPREHENSIVE METABOLIC PANEL (10/25/2021 3:39 PM CREATIVE WRITING TEACHER) Glucose 114(H) 65 - 99 mg/dL [facility] ACCOUNT BILL BUN 15 6 - 24 mg/dL [facility] ACCOUNT BILL Creatinine 0.83 0.57 - 1.00 mg/dL [facility] ACCOUNT BILL eGFR by MDRD 80 >59 mL/min/1. 73 [facility] ACCOUNT BILL eGFR by MDRD 92 >59 mL/min/1. 73 [facility] ACCOUNT BILL Comment: In accordance with recommendations from the NKF-ASN Task force, [facility] is in the process of updating its eGFR calculation to the 2020 CKD-EPI creatinine equation that estimates kidney function without a race variable. BUN/Creatinine Ratio 18 9 - 23 [facility] ACCOUNT BILL Sodium 142 134 - 144 mmol/L [facility] ACCOUNT BILL Potassium 4.0 3.5 - 5.2 mmol/L [facility] ACCOUNT BILL Chloride 101 96 - 106 mmol/L [facility] ACCOUNT BILL CO2 25 20 - 29 mmol/L [facility] ACCOUNT BILL Calcium 9.9 8.7 - 10.2 mg/dL [facility] ACCOUNT BILL Protein Total 7.0 6.0 - 8.5 g/dL [facility] ACCOUNT BILL Albumin 4.6 3.8 - 4.9 g/dL [facility] ACCOUNT BILL Globulin Total 2.4 1.5 - 4.5 g/dL [facility] ACCOUNT BILL Albumin/Globulin Ratio 1.9 1.2 - 2.2 [facility] ACCOUNT BILL Bilirubin Total 0.4 0.0 - 1.2 mg/dL [facility] ACCOUNT BILL Alkaline Phosphatase 88 44 - 121 IU/L [facility] ACCOUNT BILL Comment:Please note refere nce interval change AST 16 0 - 40 IU/L [facility] ACCOUNT BILL ALT 19 0 - 32 IU/L [facility] ACCOUNT BILL Blood BLOOD SPECIMEN / Unknown 10/25/2021 3:39 PM CREATIVE WRITING TEACHER 10/25/2021 Narrative Resulting Agency Comment Lab Testing performed at: [address] [id number] Robert Cameron MD LAB - CHEMISTRY ORDERABLES Final Result [facility] ACCOUNT BILL [address] [place] [address] * MAMMOGRAPHY ORDER (07/11/2018) Anatomical Region Laterality Modality Mammography Provider Unknown MAMMO ORDERABLES Final Result * (ABNORMAL) LIPID PROFILE (LIPID PANEL) (08/12/2013 3:55 PM CDT) Cholesterol 204(H) 100 - 199 mg/dL [facility] ACCOUNT BILL Triglycerides 79 0 - 149 mg/dL [facility] ACCOUNT BILL HDL Cholesterol 84 >39 mg/dL [facility] ACCOUNT BILL Comment: According to ATP-III Guidelines, HDL-C >59 mg/dL is considered a negative risk factor for CHD. VLDL Calculated 16 5 - 40 mg/dL [facility] ACCOUNT BILL LDL Calculated 104(H) 0 - 99 mg/dL [facility] ACCOUNT BILL Comment NOT NEEDED [facility] ACCOUNT BILL Comment:Ancillary determined the test is not needed Blood specimen (specimen) BLOOD SPECIMEN / Unknown 08/12/2013 3:55 PM CDT 08/12/2013 10:20 PM CDT Narrative Resulting Agency Comment [address] [place] [id number] [place] Neptali Gonzalez MD LAB - CHEMISTRY ORDERABLE S Final Result [facility] ACCOUNT BILL [address] [place] [address] from Last 3 Months or Most Recently Relevant to Health Maintenance Insurance [facility] Care Teams International Trade Manager Relationship Specialty Start Date End Date Unknown, Provider [id number] [place] [address] PCP - General 10/25/21 Long Casas MD [address] [facility] [address] [place] [address] Firer Helper Obstetrics and Gynecology 01/15/14 [place] [address] [place] [id number] Day Habilitation Supervisor Rheumatology 07/17/19
== END ==
LOC: ANHLAB 16:06
PROVIDERS: Visit Provider Plastic Surgery
DX: L98.0 Pyogenic granuloma (principal)
CPT/HCPCS: 88305